=== PATIENT | female | born 1960 | race Caucasian/White ===

== ENCOUNTER 2017-08-02 07:55 | Emergency (ER) | payer MEDICARE, MEDICAID ==
[~2017-08-02] VITALS: Ht 170.2 cm; Wt 84.1 kg
[2017-08-02 07:57] VITALS: BP 169/113; PULSE 70; RESP 30; O2SAT 96
[2017-08-02 08:00] VITALS: BP 174/77; PULSE 53; RESP 26; O2SAT 98
[2017-08-02] MEDS ORDERED: Albuterol 2.5 mg/3 mL Inhalation Solution NEB ONE (08:00)
[2017-08-02] MEDS ORDERED: Albuterol-Ipratropium 3 mL Inhalation Solution NEB ONE (08:00)
[2017-08-02] MEDS ORDERED: MethylprednisoLONE Sodium Succinate 62.5 mg/mL 2 mL Inj IVPUSH ONE (08:00)
--- NOTE | 2017-08-02 08:00 | ED.REPORT ---
HPI-Dyspnea / Wheezing Date of Service Aug 02, 2017 ED Provider: Krunal Lassiter MD The pt is a 56 y/o female w/ a hx of HTN and a nephrectomy presenting to the ED complaining of SOB. She reports the SOB starting w/ a cough yesterday, and gradually becoming worse through the night. She is also feeling diaphoretic, wheezing, and has been dry heaving from the continued coughing. She has never experienced an episode like this before. Denies vomiting, sore throat, or fever. The pt quit smoking 30 years ago and had a nephrectomy two months ago. Nursing Notes Stated Complaint: HARD TIME BREATHING Chief Complaint: SOB Nursing Notes Reviewed: Yes Allergies: Coded Allergies: Penicillins (Verified Allergy, Unknown, 08/02/17) codeine (Verified Allergy, Unknown, 08/02/17) hydrocodone (Verified Allergy, Unknown, hives, 08/02/17) oxycodone (Verified Allergy, Unknown, hives, 08/02/17) tramadol (Verified Allergy, Unknown, hives, 08/02/17) Uncoded Allergies: CONTRAST DYE (Allergy, Unknown, red line to heart, 08/02/17) Scheduled Albuterol HFA (Proair HFA) 8.5 Gm Hfa.aer.ad 2-4 PUFFS INHALATION Q4H Use with spacer Prednisone (PredniSONE) 20 Mg Tablet 40 MG PO DAILY General Time Seen by MD: 07:58 Chief Complaint Shortness of breath Hx Obtained From: Patient Arrived By: Walk-in Sudden in Onset?: Yes Onset Occurred: Yesterday Symptom Duration: Since onset Recent Healthcare: No recent doctor visit, No recent hospitalization Similar Sx Previous: No Past Medical History Past Medical History HTN Denies: Cancer, Stroke Past Surgical History Nephrectomy - May of 2017 Smoking History Former Smoker (Pt quit 30+ years ago ) Social History Other Social History: Good social support Ambulatory Status Independent Review of Systems Wheezing; Dry heaving from continued coughing; Constitutional: Denies: Fever Ears / Nose / Throat: Denies: Sore throat Respiratory: Reports: Non-productive cough, Shortness of breath Skin: Reports Diaphoresis Complete sys rev & neg: except as marked. GI: Denies: Vomiting Physical Exam Initial Vital Signs Vital Signs (First) Date Time Temp Pulse Resp B/P Pulse Ox O2 Delivery O2 Flow Rate FiO2 08/02/17 07:57 36.5 70 30 169/113 96 Room Air 08/02/17 08:00 8 Initial VS: Reviewed Head / Eyes: Atraumatic, Normocephalic, PERRL Abdomen / GI: Soft, Non-tender, No guarding, No rebound, No distention Extremities: Vascular intact, Neuro intact, No swelling, No tenderness Skin: Warm, Dry, No cyanosis Neurologic: Alert, Oriented, Nonfocal Psychiatric: Mood/affect normal, Behavior normal, Normal thought content General/Constitutional: Awake, Alert Neck: Atraumatic, Supple, Full range of motion Respiratory / Chest: Breath sounds = bilat, No rales, No chest tenderness Wheezing / Retractions: Positive: Wheeze insp/exp diffuse Tachypnic Cardiovascular: Heart rate NL, Regular rhythm, Heart sounds NL ENT: Atraumatic, Airway patent, Mucous membranes moist Interpretation & Diagnostics Lab Results Interpretation Result Diagram: 08/02/17 0803 08/02/17 0803 Test 08/02/17 08:03 White Blood Count 8.7th/mm3 (3.8-10.1) Red Blood Count 4.75mil/mm3 (3.90-5.20) Hemoglobin 13.8g/dL (12.0-15.6) Hematocrit 41.2% (35.0-46.0) Mean Corpuscular Volume 86.7fL (81-100) Mean Corpuscular Hemoglobin 29.1pg (27.0-35.0) Mean Corpuscular Hemoglobin Concent 33.5% (32.0-37.0) Red Cell Distribution Width 14.2% (12.3-15.4) Platelet Count 241bil/L (150-400) Neutrophils (%) (Auto) 68.0% (40-74) Lymphocytes (%) (Auto) 17.4% (14-46) Monocytes (%) (Auto) 5.0% (4-12) Eosinophils (%) (Auto) 8.7% (0-5) Basophils (%) (Auto) 0.8% (0-3) Sodium Level 143mEq/L (134-144) Potassium Level 4.5mEq/L (3.5-5.2) Chloride Level 107mEq/L (97-108) Carbon Dioxide Level 20mmol/L (18-29) Blood Urea Nitrogen 24mg/dL (6-24) Creatinine 1.05mg/dL (0.57-1.00) Estimat Glomerular Filtration Rate 77mL/min (>59) Glucose Level 131mg/dL (60-99) Calcium Level 9.1mg/dL (8.5-10.1) Total Bilirubin 0.4mg/dL (0.0-1.2) Aspartate Amino Transf (AST/SGOT) 15U/L (0-50) Alanine Aminotransferase (ALT/SGPT) 22U/L (0-32) Alkaline Phosphatase 94U/L (25-150) Troponin T < 0.010ug/L (0.0-0.011) Total Protein 7.5g/dL (6.4-8.4) Albumin 4.3g/dL (3.4-5.0) Hold Adams Top Tube Received (Received) ECG Interpretation ECG Interpretation: Rate 54 NSR RBBB Time: 08:13 Interpreted by: ED physician X-Ray Chest Interpretation Chest Xray Interpretation: IMPRESSION: Likely atelectasis involving the right lower lung. Differential diagnosis includes mild/early infiltrate. As clinically appropriate, a short-term followup chest series (with PA and lateral views) performed in deep inspiration is suggested for further evaluation. Note: Findings and recommendations discussed by telephone with Dr. Lassiter at 8:15 AM on August 02, 2017. Dictated by: Lucas Cruz M.D. on 08/02/2017 at 8:36 Approved by: Lucas Cruz M.D. on 08/02/2017 at 8:37 View: Portable, 1 view Interpretation / Wet Read by: Interpret - Radiologist Re-Eval/Medical Decision Source of Hx: Family Re-Evaluation/Progress : Time of Eval: 09:07 Re-Evaluation/Progress Note: Pt rechecked and is breathing better. Informed pt of plan for treatment. Pt understands and agrees with plan for treatment. F/U instructions and RTER warnings given. All questions addressed. Counseled Regarding: Diagnosis, Lab results, Need for follow-up, When/why to return to ED Discharge & Departure Impression: Primary Impression: Reactive airway disease with acute exacerbation Additional Impression: Upper respiratory disease Disposition: Home Discharge Condition All VS Reviewed: Yes Condition: Stable Patient Instructions: Reactive Airways Disease (ED) Additional Instructions: Thank for you entrusting us with your care today. Your X-ray and blood work were reassuring. Please see your primary care provider in the next week or two for an ER Follow- up. You can tell them what happened today and they will be able to investigate further. Please takes the medications as prescribed and use the inhaler as needed. Please return to the emergency department if you experience any new or worsening symptoms. Referrals: Radha Gardiner MD Scribe Attestation Portions of this note were transcribed by Germain Holguin. I, Dr. Lassiter personally performed the history, physical exam and medical decision-making; I reviewed and confirmed the accuracy of the information in the transcribed note. copies to: Radha Gardiner MD, Kirk H MD Aug 02, 2017 08:00 Germain Holguin Aug 02, 2017 08:10
[2017-08-02 08:10] LABS: BASOPHILS % (AUTO) 0.8 % (0-3); EOSINOPHILS % (AUTO) 8.7 % (0-5); Mean Corpuscular Hemoglobin 29.1 pg (27.0-35.0); Mean Corpuscular Volume 86.7 fL (81-100); Platelet Count 241 bil/L (150-400)
[2017-08-02 08:19] VITALS: PULSE 64; RESP 16; O2SAT 94
[2017-08-02] MEDS ORDERED: Ondansetron 2 mg/mL 2 mL Inj IVPUSH ONE (08:20)
--- NOTE | 2017-08-02 08:39 | DRSVH ---
PROCEDURE: X-RAY CHEST ONE VIEW, PORTABLE ([id number]) INDICATIONS: dyspnea/wheezing TECHNIQUE: One view of the chest was acquired. COMPARISON: None. FINDINGS: Surgical changes and devices: None. Lungs and pleura: No pleural effusions or pneumothorax. Mild streaky opacity can be seen involving the right lower lung. Mediastinum: Mediastinal contours appear normal. Heart size is normal. Bones and chest wall: Age-appropriate bony degenerative changes are seen. No suspicious bony lesion s. Overlying soft tissues appear unremarkable. IMPRESSION: Likely atelectasis involving the right lower lung. Differential diagnosis includes mild/ early infiltrate. As clinically appropriate, a short-term followup chest series (with PA and lateral views) performed i n deep inspiration is suggested for further evaluation. Note: Findings and recommendations discussed by telephone with Dr. Lassiter at 8:15 AM on July 152016. Dictated by: Lucas Cruz M.D. on 08/02/2017 at 8:36 Approved by: Lucas Cruz M.D. on 08/02/2017 at 8:37
[2017-08-02 08:53] LABS: TROPONIN T < 0.010 ug/L (0.0-0.011)
[2017-08-02 09:02] VITALS: BP 157/78; PULSE 57; RESP 20; O2SAT 93
[2017-08-02] MEDS ORDERED: ALBU8.5H2 INHALATION (09:22)
[2017-08-02] MEDS ORDERED: PRE20 PO (09:22)
[2017-08-02 09:33] VITALS: BP 169/70; PULSE 64; RESP 22; O2SAT 94
== END 2017-08-02 09:32 | disposition home or self-care (01) ==
LOC: SED 07:55
DX: J45.901 Unspecified asthma with (acute) exacerbation (principal); J39.8 Other specified diseases of upper respiratory tract; I10 Essential (primary) hypertension; Z87.891 Personal history of nicotine dependence; Z88.0 Allergy status to penicillin; Z88.5 Allergy status to narcotic agent
CPT/HCPCS: 36415; 71010; 80053; 84484; 85025; 93005; 94644; 96374; 96375; 99285; J2405; J2930; J7613; J7620